=== PATIENT | male | born 1955 | race Caucasian/White ===

== ENCOUNTER 2016-12-08 06:41 | Inpatient (IN) | payer OTHER ==
[2016-12-08] VITALS (11 sets, daily range): BP systolic 113–137; BP diastolic 51–77
[~2016-12-08] VITALS: Ht 175.3 cm; Wt 95.3 kg
--- NOTE | ~2016-12-08 | O ---
[facility] [place] [address] OPERATIVE REPORT Name: NICHOLASJOE Snehal Room #: 543-P [facility] IN M.R.#: [id number] Admission: 12/08/16 Attend Phys: Gerber Lopez MD Discharge: 12/09/16 Date of : 57 Report #: [id number] THIS REPORT FOR: //name// CC: Gerber JARRETT DATE OF SERVICE: 12/08/2016 PREOPERATIVE DIAGNOSIS: Herniated and extruded disk, L4-L5 right with radiculopathy, recurrent. POSTOPERATIVE DIAGNOSIS: Herniated an extruded disk, L4-L5 right with radiculopathy, recurrent. PROCEDURE: Revision right L4-L5 laminectomy and diskectomy. SURGEON: Gerber Lopez MD INDICATIONS: This 61-year-old gentleman has had previous problems with the low back and had a previous decompressive laminectomy and diskectomy procedure many years ago. I believe this was probably at the L4-L5 level, but may have extended down to L5-S1 as well. He has done generally well since that time, although with moderate intermittent low back discomfort. 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 He recently injured the low back when two hogs weighing about 400 pounds became unruly and pushed him over and then fell back upon him. Following this, he has had rather significant back pain as well as radiating right leg pain, numbness and some sense of subjective weakness. His recent MRI scan reveals what appears to be a recurrent herniated disk fragment at L4-L5 extending distally along the posterior aspect of L5 vertebra; this seems to cause moderate canal and foraminal narrowing on the right side consistent with his symptoms. Given these findings, we have elected to go ahead with revision surgical laminectomy and diskectomy. I have explained preoperatively that this may be more difficulty because he has had previous surgery and undoubtedly has significant scarring and chronic degenerative change as well as this more acute recurrent herniated disk fragment. DESCRIPTION OF PROCEDURE: The patient was taken to the operating room where he was placed under general anesthesia. Prophylactic intravenous antibiotics were administered. He was turned to the prone position. The low back was meticulously prepped and draped. C-arm was used to localize the appropriate level and a skin incision was made through the old surgical scar, which appeared to be overlying the L4-L5 and L5-S1 levels. The dissection was carried along the right paraspinal plane to rather dense scar tissue, exposing the lamina. Initially, the canal was entered and C-arm was used to identify the level. I was somewhat lower at the lower aspect of L5. The canal seemed to be [address] [address] OPERATIVE REPORT Name: JOE PETERSON Room #: 543-P [facility] IN M.R.#: [id number] Admission: 12/08/16 Attend Phys: Gerber Lopez MD Discharge: 12/09/16 Date of : 57 Report #: [id number] significantly tight with a good deal of old postoperative scarring making dissection difficult. The inferior aspect of the L5 lamina was identified and there had been obvious previous surgical debridement in this region. There was some remaining lamina, which seemed to cause significant canal narrowing given the scar tissue. A right hemilaminectomy was performed removing the entire right side of L5. The L4-L5 facet joint was left intact. The dissection was carried proximally to the level of the L4-L5 disk space. This was assessed with several C-arm views demonstrating appropriate position. There was a good deal of scarring about the dura and right L4 and L5 nerve roots. In addition, there was a good deal of epidural hypervascularity with some rather large veins. This was controlled with gentle pressure, but there was moderate oozing throughout the procedure. This was easily controlled with gentle packing with cottonoids during the procedure, but there was some difficulty at the end of the procedure obtaining a good dry field. The area of extruded disk fragment was identified and there was a moderate sized extruded disk extending along the posterior aspect of L5 vertebra below the L4-L5 disk space. This was removed. Several smaller fragments were identified which were also removed. This was traced up to the L4-L5 disk space, which was entered with a probe. The disk space itself was not very prominent and there did not seem to be any additional extruded disk fragments. No further dissection with regard to the disk itself was required. Once this decompression had been completed, there appeared to be ample room in the canal and the neural foramina. The extruded disk fragments appeared to be completely removed. There was, however, still a moderate amount of perineural scarring and the L5 nerve root was still somewhat erythematous and appeared moderately inflamed. As noted above, there was some ongoing oozing and I spent a fair amount of time simply gently packing this with Gelfoam and thrombin and cottonoids until we had a good dry field. Total blood loss throughout the entire procedure was about 150 mL. At the conclusion, there was just a bit of persistent oozing, but this seemed to be acceptable. Nevertheless, I felt it was most reasonable to leave a small Hemovac in the wound and at least monitor over the coming 12-24 hours. At this point, the entire ____. DICTATION ENDS HERE <ELECTRONICALLY SIGNED> By: Gerber Lopez MD 12/11/16 1027 1131 1203 Gerber Lopez MD /duncan
--- NOTE | ~2016-12-08 | D ---
[facility] [place] [address] DISCHARGE SUMMARY Name: JOE PETERSON Room #: 543-P [facility] IN ..#: [id number] Admission: 12/08/16 Attend Phys: Gerber Lopez MD Discharge: 12/09/16 Date of : 57 Report #: [id number] THIS REPORT FOR: //name// CC: Gerber JARRETT DATE OF SERVICE: 12/09/2016 FINAL DIAGNOSIS: Herniated lumbar disk, L4-L5 right with associated radiculopathy. OPERATIONS AND PROCEDURES: Revision decompressive laminectomy and diskectomy, L4-L5 right. HISTORY OF PRESENT ILLNESS: This 61-year-old gentleman has previous history of low back injury and herniated lumbar disk, treated surgically many years ago. Recently, he had another accident at work, resulting in low back sprain and a new disk herniation with right-sided radiculopathy. We have elected to go ahead with revision surgical decompression. HOSPITAL COURSE: The patient was admitted and taken to the operating room on 12/08. He underwent a revision decompressive laminectomy and diskectomy procedure. This was difficult given the previous scarring and rather large extruded disk fragments. He also had a moderate intraoperative bleeding. He was kept overnight to monitor for any further bleeding with a Hemovac drain in place. He actually tolerated the procedure quite nicely. Postoperatively, his symptoms are remarkably improved, he states he no longer has any sense of leg pain, numbness or weakness. This morning, he has already been up, ambulating in the mitchell and seems to be safe and functionally independent. The Hemovac drains only put out about 10 mL through the night and is really not putting out any further drainage at this point. The dressing is dry and he seemed to be making excellent progress. I think it is reasonable to go ahead with hospital discharge today. I have suggested that he very gently advance activities over the coming 10-14 days. DISCHARGE MEDICATIONS: Include lovastatin 20 mg daily, fish oil 1000 mg daily, lisinopril 1 tablet daily, tramadol 50 mg q.4 hours p.r.n. for mild pain, hydrocodone 10 mg q.4 hours p.r.n. for more moderate pain, ranitidine 300 mg b.i.d., Synthroid 0.137 mg daily, and multivitamins one daily. He will continue a gentle moderate activity at home and call me should there be [address] [address] DISCHARGE SUMMARY Name: JOE PETERSON Snehal Room #: 543-P [facility] IN [facility].#: [id number] Admission: 12/08/16 Attend Phys: Gerber Lopez MD Discharge: 12/09/16 Date of : 57 Report #: [id number] any problems or questions. I will plan to see him back for followup visit in about 2 weeks. <ELECTRONICALLY SIGNED> By: Gerber Lopez MD 12/11/16 1027 0815 1322 Gerber Lopez MD /duncan
--- NOTE | ~2016-12-08 | EKG ---
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
--- NOTE | ~2016-12-08 | S ---
[facility] [place] [address] SURGICAL PATH RPT PROCEDURE Name: TAL PETERSON Room #: 543-P [facility] IN M.R.#: [id number] Admission: 12/08/16 Date of : 57 Discharge: 12/09/16 Report #: [id number] Path Case #: [id number] PATHOLOGY REPORT COLLECTION DATE: 12/08/2016 RECEIVED DATE: 12/08/2016 SUBMITTING PHYS: Dr. Gerber Lopez OTHER PHYS: SPECIMEN(S) RECEIVED: A.Right L4-L5 * * * * * * * * * * * * FINAL DIAGNOSIS: Right disc fragment L4-L5, discectomy: - Fragments of reactive cartilage, bone, dense fibrillary tissue associated with regenerative changes. - Negative for malignancy. (IUV:mgr; d/t: 12/10/16) PATHOLOGIST: Nica Gonsalez M.D. REPORT ELECTRONICALLY SIGNED BY: Nica Gonsalez M.D. DATE/TIME: 12/10/2016 17:06 * * * * * * * * * * * * GROSS PATHOLOGY: Received in formalin labeled "Tal Peterson, disc fragment 4-5," and additionally labeled on the requisition in the clinical background as right L4, L5 disc". Received are several pieces of glistening, fibrous tissue measuring 2.5 x 1.5 x 0.7 cm in aggregate dimensions admixed with small fragments of bone. The tissue is submitted entirely in cassette A1, following decalcification. (CAA; 12/09/2016) CLINICAL HISTORY: Right L4, L5 disc bulge INITIAL CPT CODE(S): A; 35232, 99862 Professional services performed by [facility] at [facility] [address] , [place] [address] Technical services performed by [facility] at [address] [place] [address], [address] [address]. [facility] [address] [place] [address] SURGICAL PATH RPT PROCEDURE Name: TAL PETERSON Room #: 543-P [facility] IN ..#: [id number] Admission: 12/08/16 Date of : 57 Discharge: 12/09/16 Report #: [id number] Path Case #: [id number] Percy Saez [facility] [address] [address] PHONE: [phone] DIRECTOR: Javy Amaya M.D. * * * END OF REPORT * * *
[~2016-12-08 06:41] MED LIST: DIAZEPAM2 MG PO; FISH OIL 1,001000 M2 PO; HYDROCODONE-AP1 EAC6 PO; LEVOTHYROXIN0.137 M1 PO; LISINOPRIL-HCT1 EAC1 PO; LOVASTATIN 20 M20 MG PO; Q-SORB CO Q-10200 MG PO; RANITIDINE HCL300 MG PO; TRAMADOL 50 MG50 MG PO
[2016-12-08 07:12] LABS: CALCIUM 9.1 mg/dL (8.5-10.1); CREATININE 0.9 mg/dL (0.7-1.3); POTASSIUM 4.5 mmol/L (3.5-5.1)
[2016-12-09 04:00] VITALS: BP 103/63
[2016-12-09 08:57] VITALS: BP 115/62
[2016-12-09 10:36] VITALS: BP 115/62
[2016-12-09 11:33] VITALS: BP 115/62
== END 2016-12-09 13:01 | disposition home or self-care (01) | DRG 520 ==
LOC: OR 06:41 → TBA 06:44 → OR 13:03 → 5S 13:04 → OR 13:52 → 5S 12-09 13:01
PROVIDERS: Orthopaedic Surgery
DX: M51.17 Intervertebral disc disorders with radiculopathy, lumbosacral region (principal); I10 Essential (primary) hypertension; E66.9 Obesity, unspecified; K21.9 Gastro-esophageal reflux disease without esophagitis; E78.5 Hyperlipidemia, unspecified; Z79.899 Other long term (current) drug therapy; Z82.49 Family history of ischemic heart disease and other diseases of the circulatory system; Z68.31 Body mass index [BMI] 31.0-31.9, adult
CPT/HCPCS: 10785; 50010; 50101; 50402; 50426; 50704; 50850; 51412; 56525; 62110; 62900; 70005